=== PATIENT | female | born 1975 ===

== ENCOUNTER 2022-09-21 09:36 | Inpatient (IN) | payer OTHER ==
[~2022-09-21] VITALS: Ht 162.6 cm; Wt 100.2 kg
[2022-09-22] MEDS ORDERED: TOPROL XL25 M1 PO (13:18)
[2022-09-22] MEDS ORDERED: INDAPAMIDE2.5 MG PO (13:19)
[2022-09-22] MEDS ORDERED: CYMBALTA60 MG PO (13:19)
[2022-09-22] MEDS ORDERED: SINGULAIR10 MG PO (13:20)
[2022-09-22] MEDS ORDERED: VALIUM PO (13:20)
[2022-09-22] MEDS ORDERED: TOLTERODINE TART4 MG PO (13:21)
[2022-09-30] MEDS ORDERED: DIVALPROEX SOD500 MG (16:03)
[2022-09-30] MEDS ORDERED: DIAZEPAM10 MG (16:03)
[2022-09-30] MEDS ORDERED: ARNUITY ELLIP200 MCG (16:03)
[2022-09-30] MEDS ORDERED: LATUDA80 MG (16:04)
[2022-09-30] MEDS ORDERED: PANTOPRAZOLE SO40 MG (16:04)
[2022-09-30] MEDS ORDERED: XIIDRA1 EACH (16:04)
[2022-09-30] MEDS ORDERED: LOPRESSOR25 MG (16:04)
[2022-09-30] MEDS ORDERED: FENOFIBRIC ACI135 MG (16:04)
[2022-09-30] MEDS ORDERED: ATORVASTATIN CA10 MG (16:04)
[2022-10-01] MEDS ORDERED: IBU800 MG PO (07:37)
[2022-10-01] MEDS ORDERED: FUSION PLUS CA1 EACH PO (07:37)
== END 2022-10-01 13:11 | disposition home or self-care (01) | DRG 743 ==
LOC: SURG 09-28 07:00 → O/R 09-28 11:24 → SURH 09-28 19:27 → OB/GYN 09-28 20:57
PROVIDERS: ADMIT Specialist; ATTEND Specialist
PROC: 0WJF4ZZ Inspection of Abdominal Wall, Percutaneous Endoscopic Approach (ICD-10-PCS; 2022-09-28)
PROC: 0UT74ZZ Resection of Bilateral Fallopian Tubes, Percutaneous Endoscopic Approach (ICD-10-PCS; principal; 2022-09-29)
PROC: 0UT94ZZ Resection of Uterus, Percutaneous Endoscopic Approach (ICD-10-PCS; 2022-09-29)
DX: D25.2 Subserosal leiomyoma of uterus (principal); N80.03 Adenomyosis of the uterus; N84.0 Polyp of corpus uteri; Z20.822 Contact with and (suspected) exposure to COVID-19